=== PATIENT | male | born 1950 | race Two or more races ===

== ENCOUNTER 2018-11-13 12:12 | Emergency (ER) | payer OTHER ==
[~2018-11-13] VITALS: Ht 188 cm; Wt 89.8 kg
[~2018-11-13 12:12] MED LIST: AMOX1TAB12 PO; INTESTINEX1 CAP PO; MUCINEX D1 TAB.SR1 PO
[2018-11-13] MEDS ORDERED: PLAVIX75 MG (12:36)
[2018-11-13] MEDS ORDERED: ADULT ASPIRIN81 MG (12:36)
[2018-11-13] MEDS ORDERED: TOPROL XL25 M1 (12:37)
[2018-11-13] MEDS ORDERED: PEPCID20 MG (12:37)
[2018-11-13] MEDS ORDERED: LIPITOR20 MG (12:37)
== END 2018-11-13 16:28 | disposition home or self-care (01) ==
LOC: ER 12:12
DX: N39.0 Urinary tract infection, site not specified (principal); B96.29 Other Escherichia coli [E. coli] as the cause of diseases classified elsewhere; R50.9 Fever, unspecified; J11.1 Influenza due to unidentified influenza virus with other respiratory manifestations